=== PATIENT | female | born 1980 | race Caucasian/White ===

== ENCOUNTER 2023-08-08 09:50 | Emergency (ER) | payer OTHER, SELFPAY ==
[2023-08-08] VITALS (8 sets, daily range): BP systolic 130–159; BP diastolic 62–91; PULSE 60–81; RESP 16–18; TEMP 36.2–36.8; O2SAT 98–100
--- NOTE | ~2023-08-08 | CT_ITS ---
EXAMINATION: CT abdomen pelvis w con DATE: 08/08/2023 11:06 INDICATION: Right lower abdominal pain TECHNIQUE: Computed tomography (CT) of the abdomen and pelvis was performed with 100 cc Omnipaque 350 intravenous contrast. The dose-length product was 452.63 mGy-cm. Automated exposure control and iter ative reconstruction technique were employed. COMPARISON: None. FINDINGS: Lung bases unremarkable. Heart size normal. No significant pleural or pericardial effusion. No significant vascular abnormality. No lymphadenopathy. There is a complex right adnexal mass measu ring 4 cm. Small amount of free fluid in the pelvis. There is a 2 cm cyst of the left ovary. No evide nce for appendicitis. The liver, spleen, pancreas, adrenal glands and kidneys are unremarkable. Gallbladder is present. No hydronephrosis. No acute osseous abnormality. IMPRESSION: 1. Complex right adnexal mass measuring 4 cm, likely ovarian. Recommend correlation with ultrasound. Reviewed, dictated and finalized at location A. ANALYST IMPRESSION: 1. Complex right adnexal mass measuring 4 cm, likely ovarian. Recommend correla tion with ultrasound.
[2023-08-08 10:09] LABS: Appearance Urine Clear (Clear); Bilirubin Urine Negative (Negative); Blood Urine 2+ (Negative); Color Urine Yellow (Yellow); Glucose Urine UA Negative (Negative); Ketones Urine Negative (Negative); Leukocyte Esterase Ur Negative LEU/UL (Negative); Nitrate Urine Negative (Negative); Protein Urine Negative (Negative); Specific Grav Ur >= 1.030 (1.010-1.020); Urobilinogen Urine 0.2 mg/dL (0.2-1.0); pH Urine 5.5 (5.0-8.0)
[2023-08-08 10:13] LABS: Add Urine Microscopic? YES; Squamous Epithelial Cell Urine Few /hpf (Few); WBC Urine 0-3 /hpf (0-3)
[2023-08-08 10:14] LABS: Bacteria Urine 1+ /hpf
--- NOTE | 2023-08-08 10:21 | ED.ABDPAIN ---
HPI - Abdominal Pain General Chief Complaint: Abdominal Pain Stated Complaint: abdominal pain; vaginal bleeding Time Seen by Provider: 08/08/23 09:58 Source: patient Mode of arrival: ambulatory Limitations: no limitations History of Present Illness HPI narrative: Patient is a 43 year old female with a significant past medical history that presents today with right lower abdominal pain. Patient states that starting this morning she was having right lower quadrant abdominal pain that does radiate to the back. She states she also passed a small blood clot. It is her menstruation time. However she says she normally never has abdominal cramping during her menstruation. This might just be a coincidence. Most the pain is located in the right lower quadrant and very tenderness this area. MD elicited complaint: abdominal pain Pertinent past history: none Onset (ago): hour(s) Pain Consistency: constant Location: RLQ Severity: moderate Pain scale (0-10): 6 Quality: stabbing Radiation: RLQ Migration to: no migration Exacerbating factors: movement Relieving factors: nothing Associated symptoms: hematuria and other (vaginal blood clotting) Treatments prior to arrival: NSAIDs Related Data Home Medications Medication Instructions Recorded Confirmed No Home Medications 08/08/23 08/08/23 Allergies Allergy/AdvReac Type Severity Reaction Status Date / Time amoxicillin Allergy Unknown swelling Verified 08/08/23 10:01 of throat penicillin G Allergy Unknown swelling Verified 08/08/23 10:01 of throat Review of Systems Review of Systems: All systems reviewed & are unremarkable except as noted in HPI and below Constitutional: Constitutional: Reports as per HPI Eyes: Eyes: Reports no additional eye complaints ENT: Reports system reviewed and no additional complaints, except as documented Cardiovascular: Cardiovascular: Reports no additional cardiovascular complaints Respiratory: Respiratory: Reports no additional respiratory complaints Gastrointestinal: Gastrointestinal: Reports as per HPI and Reports abdominal pain Genitourinary: Genitourinary: Reports no additional female genitourinary complaints Musculoskeletal: Musculoskeletal: Reports no additional musculoskeletal complaints Integumentary/Breasts: Skin/Breast: Reports system reviewed and no additional complaints, except as docu Neurologic: Reports system reviewed and no additional complaints, except as documented Psychiatric: Psychiatric: Reports no additional psychiatric complaints Endocrine: Endocrine: Reports no additional endocrine complaints Hematologic/Lymphatic: Hematologic/Lymphatic: Reports no additional hematologic/lymphatic complaints Allergic/Immunologic: Allergic/Immunologic: Reports no additional allergic/immunologic complaints Exam Const: General: healthy appearing Nutritional Appearance: well nourished Orientation/consciousness: patient oriented x3 HENMT: Head: normal to inspection Ears: external ears normal Face/Nose/Sinus: Normal external nose present Face and sinus: normal facial exam Mouth: Yes Normal oral and palatal mucosa present Eyes: Conjunctivae: conjunctivae normal Pupils: Equal, round and reactive pupils present EOM: EOMs intact bilaterally Neck: Neck: normal visual inspection Chest: Chest palpation & inspection: normal inspection of the chest Resp: Effort & Inspection: normal respiratory effort Auscultation: clear to auscultation bilaterally Cardio: Rate: regular rate Rhythm: regular rhythm Heart sounds: Murmur heart sound present GI: GI Palp: Yes Tenderness to palpation present (GI), Yes Guarding due to palpation present (GI) (RLQ) and Yes Rebound tenderness present Auscultation: normal bowel sounds : General: Yes bladder normal to palpation Back/Spine/Pelvis: Back: no CVA tenderness Skin: General skin exam: normal color Neuro: General: patient oriented x3 Cranial nerves: Yes Nystagmus not presen
[2023-08-08] MEDS: SODIUM CHLORIDE 0.9% IV 1,000 ML 999 ML IV CONT (10:22)
[2023-08-08] MEDS: MORPHINE SULFATE (*CRX) 4 MG/ML INJ 2 MG IV PUSH (10:22)
[2023-08-08 10:23] LABS: Basophils Absolute Auto 0.03 K/mm3 (0.00-0.10); Basophils Percent Auto 0.4 % (0.0-1.0); Eosinophils Percent Auto 1.4 % (1.0-6.0); Hematocrit 37.7 % (35.0-49.0); Hemoglobin 12.6 g/dL (12.0-15.0); Immature Granulocyte Absolute 0.01 K/mm3 (0.00-0.00); Immature Granulocyte Percent A 0.1 % (0.0-0.0); Lymphocytes Absolute Auto 1.83 K/mm3 (1.10-4.50); Mean Corpuscular HGB Conc 33.4 g/dL (32.0-36.0); Mean Corpuscular Hemoglobin 28.8 pg (27.0-31.0); Mean Corpuscular Volume 86.1 fL (78.0-102.0); Mean Platelet Volume 9.3 fl (9.2-11.8); Monocytes Percent Auto 9.6 % (2.0-11.0); Neutrophils Absolute Auto 4.6 K/mm3 (1.7-7.2); Neutrophils Percent Auto 63.5 % (50.0-70.0); Platelet Count Result 294 K/mm3 (150-420); Red Blood Count 4.38 M/mm3 (4.20-5.40); Red Cell Distribution Width 13.3 % (11.6-14.4); White Blood Count 7.3 K/mm3 (4.8-10.8)
[2023-08-08 10:39] LABS: Pregnancy On Board Control Positive; Urine Pregnancy Test Negative
[2023-08-08 10:39] LABS: Alanine Aminotransferase 19 U/L (14-59); Albumin Level 3.4 g/dL (3.4-5.0); Alkaline Phosphatase 64 U/L (46-116); Anion Gap 9 mmol/L (8-16); Aspartate Amino Transferase 14 U/L (15-37); Bilirubin,Total 0.4 mg/dL (0.00-1.00); Blood Urea Nitrogen 13 mg/dL (7-18); Calcium 8.3 mg/dL (8.5-10.1); Carbon Dioxide 27 mmol/L (21-32); Chloride 106 mmol/L (98-108); Estimated CRCL calculation 83 ml/min; Estimated Glomerular Filt Rate > 60; Glucose 86 mg/dL (70-99); Lipase 37 U/L (16-77); Osmolality Calculated 293 mOsm/kg (285-295); Potassium 3.9 mmol/L (3.5-5.1); Sodium 142 mmol/L (136-145)
[2023-08-08 10:44] LABS: Lactic Acid Reflex 1.5 mmol/L (0.4-2.0)
== END 2023-08-08 11:42 | disposition home or self-care (01) ==
PROVIDERS: Emergency Provider Family Medicine
DX: N83.201 Unspecified ovarian cyst, right side (principal)
CPT/HCPCS: 36415; 74177; 80053; 81001; 81025; 83605; 83690; 85025; 96361; 96374; 99284; J2270; J7030; Q9967

== ENCOUNTER 2023-08-09 16:19 | Emergency (ER) | payer OTHER, SELFPAY ==
[2023-08-09 16:20] VITALS: BP 129/76; PULSE 93; RESP 16; TEMP 36.7; O2SAT 98
--- NOTE | 2023-08-09 17:58 | PC.NURSE ---
Pt walked out of ED and left in vehicle before being seen.
== END 2023-08-09 18:20 | disposition left against medical advice (07) ==
DX: R10.9 Unspecified abdominal pain (principal)
CPT/HCPCS: 99199

== ENCOUNTER 2023-12-18 16:49 | Outpatient (CLI) | payer OTHER, SELFPAY ==
--- NOTE | ~2023-12-18 | XR_ITS ---
EXAMINATION: XR forearm RT 2V DATE: 12/18/2023 17:16 INDICATION: Right elbow pain. TECHNIQUE: 2 views of right forearm were obtained. COMPARISON: None. FINDINGS: Bone alignment is normal. No fracture. There is fusion of capitate, lunate, triquetrum, and hamate. Scaphoid is absent. The elbow joint space is normal. No elbow joint effusion. IMPRESSION: 1. No fracture. Reviewed, dictated and finalized at location A. IMPRESSION: 1. No fracture.
== END 2023-12-18 16:50 | disposition home or self-care (01) ==
LOC: CHSIMG 16:59
PROVIDERS: PCP Physician Assistant; Visit Provider Physician Assistant
DX: M79.631 Pain in right forearm (principal)
CPT/HCPCS: 73090

== ENCOUNTER 2023-12-22 17:49 | Outpatient (CLI) | payer OTHER, SELFPAY ==
--- NOTE | ~2023-12-22 | XR_ITS ---
EXAMINATION: XR chest 2V DATE: 12/22/2023 18:35 INDICATION: Acute bronchitis. TECHNIQUE: Frontal and lateral views of the chest were obtained. COMPARISON: Chest 2 views 06/18/2013, CT abdomen and pelvis 08/08/2023 FINDINGS: There is no pneumonia, pleural effusion, or pneumothorax. The heart size is normal. IMPRESSION: 1. No acute cardiopulmonary disease. Reviewed, dictated and finalized at location E.
== END 2023-12-22 17:50 | disposition home or self-care (01) ==
PROVIDERS: PCP Physician Assistant; Visit Provider Physician Assistant
DX: R06.2 Wheezing (principal)
CPT/HCPCS: 71046

== ENCOUNTER 2025-03-06 14:40 | Emergency (ER) | payer OTHER, SELFPAY ==
--- OUTSIDE RECORDS SUMMARY | 2019-08-31 03:33 | XMS_ITS | Continuity of Care Document ---
Author Organization [facility] [facility] Address [address] [place] [address] [place] [address] Phone Care Team Providers Care Tap Dancer Name Role Phone Provider, [facility] Unavailable Unavailable Advance Directives Directive Yes / No Effective Date File Name No Information Encounters Encounter Description Practice Location Reason(s) For Visit Diagnoses Date Provider Providers Copied on Encounter [facility], [address] [place], [place], [id number] tel:[phone] [facility] No Information Provider [facility]. [address] [place], [place], [id number]. tel:[phone] Family History Family Member Type Diagnosis Age At Onset No Information Payers Payer name Insurance type Covered libertarian ID Authoriza tion(s) No Information Social History Type Description Quantity Date Captured Comments Sex Female Smoking Status No Information History Of Present Illness Encounter Date Complaint History Of Prese nt Illness No Information Functional Status Date Functional Assessmen t No Information Instructions Date Instruction Additional Infor mation No Information Assessments Type Assessment Date No Information Patient Care Teams Name Effective Dates (start - stop) Status Members No Information
[2025-03-06 14:42] VITALS: BP 152/98; PULSE 102; RESP 16; TEMP 36.6; O2SAT 97
--- NOTE | 2025-03-06 14:52 | ED.EYEPROB ---
HPI - Eye Problem General Chief complaint: Eye Problems Stated complaint: face swelling Time Seen by Provider: 03/06/25 14:49 Source: patient Mode of arrival: ambulatory Limitations: no limitations History of Present Illness HPI Narrative: 45-year-old with a history of psoriasis here with a right sided facial pain and swelling for past 2 days. She denies any trauma no history of fever or chills. She states that her doctor is on vacation. chief complaint: eye pain Onset (ago): day(s) (3) Onset description: gradual Duration: constant Location: right eye Eye Symptoms: pain Place: home Mechanism: none Severity: mild Related Data Home Medications ?Medication ?Instructions ?Recorded ?Confirmed ?Last Taken ?Type albuterol sulfate 90 mcg/actuation 2 inh inhalation Q6H PRN 01/25/25 01/25/25 Unknown History breath activated powder inhaler cyclobenzaprine 10 mg tablet 10 mg PO QID 01/25/25 01/25/25 Unknown History fluticasone propionate 100 1 inh inhalation Q12H 01/25/25 01/25/25 Unknown History mcg/actuation blister powder for inhalation gabapentin 300 mg capsule 300 mg PO TID 01/25/25 01/25/25 Unknown History Allergies Allergy/AdvReac Type Severity Reaction Status Date / Time amoxicillin Allergy Unknown swelling Verified 03/06/25 14:44 of throat penicillin G Allergy Unknown swelling Verified 03/06/25 14:44 of throat Review of Systems Review of Systems: All systems reviewed & are unremarkable except as noted in HPI and below Constitutional: Constitutional: Reports no additional constitutional complaints Eyes: Eyes: Reports no additional eye complaints ENT: Reports system reviewed and no additional complaints, except as documented Cardiovascular: Cardiovascular: Reports no additional cardiovascular complaints Respiratory: Respiratory: Reports no additional respiratory complaints Genitourinary: Genitourinary: Reports no additional female genitourinary complaints [facility] Past Medical History Medical History Asthma Allergies Family History Family History Mother Cancer Heart disease Sibling Cancer Grandparent Cancer Heart disease Social History Social History Smoking packs per day: 0.75 Smoking cigarettes per day: 15.0 Years smoked: 22 Smoking pack-years: 16.50 Smoking status: Current every day smoker Tobacco type: cigarettes Smoking end date: 06/13/25 Alcohol intake: never Substance use: never Do You Feel Safe in your Home?: Yes Lack of Transportation: No Lack of Food: Never True Current Housing: I Have Housing Concerned About Future Housing: No Difficulty Paying Gas/Electric Bills: No Difficulty Paying for Meds: No Currently Unemployed: No Education: Associate Degree Difficulty w/ Childcare or Family Care: No Exam Narrative: GENERAL: Well-appearing, well-nourished, and in no acute distress. HEAD: Normocephalic, atraumatic. EYES: PERRLA and EOMI. Right lower eyelid is swollen has a small stye ENT: Nares clear, no rhinorrhea or epistaxis. Mucous membranes moist. NECK: Supple. CHEST: Clear to auscultation. No respiratory distress. HEART: Regular rate and rhythm. No murmur heard. Normal peripheral pulses. EXTREMITIES: Normal range of motion. No edema. SKIN: Warm, dry, no rash. NEURO: No focal deficits. Alert and oriented x3. PSYCH: Normal mood and affect. Course Course Emergency Course: advised patient warm compresses antibiotic eye ointment Vital Signs Vital signs: Vital Signs Temperature 36.6 C 03/06/25 14:42 Pulse Rate 102 H 03/06/25 14:42 Respiratory Rate 16 03/06/25 14:42 Blood Pressure 152/98 H 03/06/25 14:42 Pulse Oximetry 97 03/06/25 14:42 Oxygen Delivery Room Air 03/06/25 14:42 Temperature 36.6 C 03/06/25 14:42 Pulse Rate 102 H 03/06/25 14:42 Respiratory Rate 16 03/06/25 14:42 Blood Pressure 152/98 H 03/06/25 14:42 Pulse Oximetry 97 03/06/25 14:42 Oxygen Delivery Room Air 03/06/25 14:42 Discharge Plan Discharge Clinical Impression: External hordeolum Qualifiers: Laterality: right Eyelid: lower Qualified Code(s): H00.012 - Hordeolum externum right lower eyelid Patient Disposition: Home Condition: Stable Instructions: Umberto (ED) Patient Language: Polish Prescriptions: New erythromycin 5 mg/gram (0.5 %) ointment 1 applic RIGHT EYE Q8H Qty: 3.5 0RF No Action gabapentin 300 mg capsule 300 mg PO TID cyclobenzaprine 10 mg tablet 10 mg PO QID albuterol sulfate 90 mcg/actuation aerosol powdr breath activated 2 inh inhalation Q6H PRN fluticasone propionate 100 mcg/actuation blister with device 1 inh inhalation Q12H methylprednisolone [Medrol (Tru)] 4 mg tablets,dose pack See Rx Instructions PO PER PKG DIR Qty: 21 0RF Rx Instructions: PO PER PKG DIR Follow-up/Referrals: Nellie,LIGIA Light [Primary Care Provider] Time of Disposition: 15:04
--- OUTSIDE RECORDS SUMMARY | 2025-03-06 14:56 | XMS_ITS | Encounter Summary ---
Author Organization [facility] Address [address] [place] [address] Care Team Providers Care Picking Table Worker Name Role Phone Phani Ballard Primary Care Provider [phone] Encounter Details Date Type Department Care Team (Late st Contact Info) Description 11/20/2018 Abstract [facility] CONVERSION [address] [place] [address] , Generic Conversion, Social History Tobacco Use Types Packs/Day Years Used Date Smoking Tobacco: Never Assessed Comments Unknown Sex and Gender Information Value Date Recorded Sex Assigned at Not on file Legal Sex Female 9:05 PM LIABILITY CLAIMS MANAGER Gender Identity Not on file Sexual Orientation Not on file documented as of this encounter Plan of Treatment Not on file documented as of this encounter Visit Diagnoses Not on filedocumented in this encounter Additional Health Concerns Infection Onset Date Last Indicated Resolved Time MRSA 07/01/2018 07/01/2018 documented as of this encounter Care Teams Picking Table Worker Relationship Specialty Start Date End Date Phani Ballard PA PCP - General PHYSICIAN LOGGING EQUIPMENT MECHANIC 04/18/24 documented as of this encounter
--- OUTSIDE RECORDS SUMMARY | 2025-03-06 14:56 | XMS_ITS | Encounter Summary ---
Author Organization [facility] Address [address] [place] [address] Care Team Providers Care Vocal Artist Name Role Phone Phani Ballard Primary Care Provider [phone] Encounter Details Date Type Department Care Team (Late st Contact Info) Description 08/29/2017 Abstract [facility] CONVERSION [address] [place] [address] , Generic Conversion, Social History Tobacco Use Types Packs/Day Years Used Date Smoking Tobacco: Never Assessed Comments Unknown Sex and Gender Information Value Date Recorded Sex Assigned at Not on file Legal Sex Female 9:05 PM PARAEDUCATOR Gender Identity Not on file Sexual Orientation Not on file documented as of this encounter Plan of Treatment Not on file documented as of this encounter Visit Diagnoses Not on filedocumented in this encounter Additional Health Concerns Infection Onset Date Last Indicated Resolved Time MRSA 07/01/2018 07/01/2018 documented as of this encounter Care Teams Vocal Artist Relationship Specialty Start Date End Date Pahni Ballard PA PCP - General PHYSICIAN YARD LOADER OPERATOR 04/18/24 documented as of this encounter
--- OUTSIDE RECORDS SUMMARY | 2025-03-06 15:16 | XMS_ITS | Clinical Summary ---
Author Organization [facility] Address [address] [place] [address] Care Team Providers Care Conditioning Coach Name Role Phone Shirley Hicks MD Unavailable Phani Ballard Primary Care Provider [phone] Allergies Active Allergy Reactions Criticality Noted Date Comments Penicillins Swollen tongue High 08/09/2023 Medications acetaminophen-a spirin-caffeine (EXCEDRIN MIGRAINE) 250-250-65 mg per tablet Take 1 tablet by mouth every 6 (six) hours as needed for headaches Active albuterol HFA (PROVENTIL HFA,VENTOLIN HFA,PROAIR HFA) 90 mcg/actuation inhaler Inhale 2 puffs every 4 (four) hours as needed for shortness of breath Active diazePAM (VALIUM) 5 mg tablet Take 1 tablet (5 mg total) by mouth 2 (two) times a day 10 tablet 5 Active ibuprofen (ADVIL,MOTRIN) 600 mg tablet Take 1 tablet (600 mg total) by mouth every 6 (six) hours as needed for pain for up to 20 doses 20 tablet 5 Active HYDROcodone-mason taminophen (NORCO) 5-325 mg per tabletIndicatio ns:Pain Take 1 tablet by mouth every 6 (six) hours as needed for pain for up to 10 doses 10 tablet 5 Active Active Problems No known active problems Resolved Problems Problem Noted Date Diagnosed Date Resolved Date Ovarian torsion 08/10/2023 08/27/2023 Surgical History Surgery Date Site/Laterality Comments BONE GRAFT Right LAPAROSCOPIC OOPHORECTOMY 06/15/2023 - 06/14/2024 Right acute RLQ pain, endometrioma Medical History Medical History Date Comments Abnormal Pap smear of cervix Asthma Psoriasis Migraines Family History Medical History Relation Name Comments Multiple sclerosis Brother Breast cancer Maternal Grandmother Relation Name Status Comments Brother Maternal Grandmother Social History Tobacco Use Types Packs/Day Years Used Date Smoking Tobacco: Every Day Cigarettes 0.7 25.7 Started: 1999 Smokeless Tobacco: Never Tobacco Cessation:Ready to Q uit: Not Asked; Counseling Given: Not Answered AUDIT-C Answer Date Recorded Q1: How often do you have a drink containing alcohol? Never 08/10/2023 Q2: How many drinks containi ng alcohol do you have on a typical day when you are drinking? Patient does not drink Q3: How often do you have si x or more drinks on one occasion? Never 08/10/2023 Personal Safety Answer Date Recorded Have you ever been in or are you currently in a harmful physical or emotional relationship or is someone making you feel afraid or unsafe? 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 - [employer] Not on file Not on file Not on file Obstetrics History Para Term AB IAB SAB Ectopic Multiple Livin g Live Births 2 2 2 2 Date Outcome GA Total Labor Labor/2nd/3rd Weight Sex Type Anes PTL Marycarmen A1 A5 Name Clin Term Vaginal Term Vaginal Last Filed Vital Signs Vital Sign Reading Time Taken Comments Blood Pressure 137/86 11/11/2024 9:08 PM CDT Pulse 93 11/11/2024 9:08 PM CDT Temperature 36.9 C (98.4 F) 11/11/2024 9:08 PM CDT Respiratory Rate 18 11/11/2024 9:08 PM CDT Oxygen Saturation 99% 11/11/2024 9:08 PM CDT Inhaled Oxygen Concentration - - Weight 79.4 kg (175 lb) 11/11/2024 9:08 PM CDT Height 170.2 cm (5' 7) 11/11/2024 9:08 PM CDT Body Mass Index 27.41 11/11/2024 9:08 PM CDT Plan of Treatment Health Maintenance Due Date Last Done Comments Breast Cancer Screening-Mammogram 1979 Cervical Cancer Screening 1979 Colon Cancer Screening-Colonoscopy 1979 Depression Screening 1979 Hepatitis C Screening 1979 DTaP/Tdap/Td Vaccine (6 - Tdap) 02/14/1993 02/13/1993, 02/12/1984, 08/02/1981, Additional history exists Hepatitis B Screening 1997 Regular Well Visit/Exam 18-64 1997 Pneumococcal vaccine <65 (1 of 2 - PCV) 1998 HPV Vaccines (1 - 3-dose SCD M series) 2006 Influenza Vaccine (#1) 2025 Insurance [facility] Advance Directives For more information, please contact: [phone] * Full Code (Latest Code Status on File) Date Activated Date Inactivated Comments 08/10/2023 5:32 AM 08/10/2023 3:45 PM Care Teams Conditioning Coach Relationship Specialty Start Date End Date Phani Ballard PA [address] [place] [address] PCP - General Family Practice 11/11/24 Shirley Hicks MD [address] [place] [address] Drawbridge Operator Obstetrics and Gynecology 08/10/23
--- OUTSIDE RECORDS SUMMARY | 2025-03-06 15:16 | XMS_ITS | Clinical Summary ---
Author Organization [facility] Address [facility] [place] [address] Care Team Providers Care Professional Development Director Name Role Phone Phani Ballard Primary Care Provider [phone] Allergies Active Allergy Reactions Criticality Noted Date Comments Amoxicillin Anaphylaxis High 05/16/2024 Etanercept Swelling 05/16/2024 Penicillins Unknown 05/16/2024 Medications HYDROcodone-acet aminophen (NORCO) 5-325 MG tablet 08/10/2023 Active NARCAN 4 MG/0.1ML nasal spray 08/10/2023 Active WIXELA INHUB 100-50 MCG/ACT inhaler 1 puff 2 (two) times daily. 12/21/2023 Active meloxicam (MOBIC) 15 MG tabletIndication s:Lateral epicondylitis, right elbow Take 1 tablet (15 mg total) by mouth daily. 30 tablet 2 05/16/2024 Active Active Problems Problem Noted Date Diagnosed Date Lateral epicondylitis, right elbow 05/16/2024 Assessment & Plan (05/16/2024 6:06 PM ACCOUNT SOLUTIONS ANALYST): Recommendation at this time, we went over the risks and benefits as well as the alternatives. All questions are answered. The right elbow was injected, tolerated well. We'll get her set up for meloxicam 15 mg once daily. Give her physician-directed exercises. We'll have her follow up in six weeks. If there's no significant improvement, maintain to eventually work her up for the carpal tunnel. Also a contributing cause of her right arm pain. 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[facility]) Social History Tobacco Use Types Packs/Day Years Used Date Smoking Tobacco: Every Day Cigarettes Tobacco Cessation:Ready to Q uit: No; Counseling Given: Yes Alcohol Use Standard Drinks/Week Comments Never 0 (1 standard drink = 0.6 oz pur e alcohol) PHQ-2 Answer Date Recorded Patient Health Questionnaire-2 Score 0 05/16/2024 Comments Unknown Sex and Gender Information Value Date Recorded Sex Assigned at Not on file Legal Sex Female 9:05 PM ACCOUNT SOLUTIONS ANALYST Gender Identity Not on file Sexual Orientation Not on file Last Filed Vital Signs Vital Sign Reading Time Taken Comments Blood Pressure 131/76 05/16/2024 1:46 PM ACCOUNT SOLUTIONS ANALYST Pulse 93 05/16/2024 1:46 PM ACCOUNT SOLUTIONS ANALYST Temperature 36.8 C (98.2 F) 05/16/2024 1:46 PM ACCOUNT SOLUTIONS ANALYST Respiratory Rate - - Oxygen Saturation 98% 05/16/2024 1:46 PM ACCOUNT SOLUTIONS ANALYST Inhaled Oxygen Concentration - - Weight 79.4 kg (175 lb) 05/16/2024 1:46 PM ACCOUNT SOLUTIONS ANALYST Height 170.2 cm (5' 7) 05/16/2024 1:46 PM ACCOUNT SOLUTIONS ANALYST Body Mass Index 27.41 05/16/2024 1:46 PM ACCOUNT SOLUTIONS ANALYST Plan of Treatment Health Maintenance Due Date Last Done Comments Cervical Cancer Screening Pap Smear (Age 30 to 64) Every 3 Years 1979 Colorectal Cancer Screening Colonoscopy (10 Years) 1979 Annual Physical 1982 DTaP, Tdap and Td Vaccines (6 - Tdap) 02/14/1993 02/13/1993, 02/12/1984, 08/02/1981, Additional history exists Hepatitis C 1997 Hepatitis B Vaccines (1 of 3 - 19+ 3-dose series) 1998 Pneumococcal Vaccine: Pediatrics (0 to 5 Years) and At-Risk Patients (6 to 49 Years) (1 of 2 - PCV) 1998 HPV Vaccines (1 - 3-dose SCDM series) 2006 Cervical Cancer Screening Pap with HPV Testing (Age 30 to 64) Every 5 Years 2009 Cervical Cancer Screening with HPV 2009 Mammogram Screening 2019 PHQ-2 (Physician Marrero) 06/15/2024 05/16/2024 COVID-19 Vaccine ( season) 2025 Meningococcal B Vaccine Aged Out No l onger eligible based on patient's age to complete this topic Meningococcal Vaccine Aged Out No re martha eligible based on patient's age to complete this topic RSV Immunizations Under 20 Months Aged Out No longer eligible based on patient's age to complete this topic Additional Health Concerns Infection Onset Date Last Indicated MRSA 07/01/2018 07/01/2018 Insurance [address] [place] [address] [employer] Care Teams Professional Development Director Relationship Specialty Start Date End Date Phani Ballard PA PCP - General PHYSICIAN AGRICULTURAL RESEARCH TECHNOLOGIST 04/18/24
[2025-03-06 15:19] VITALS: BP 152/98; PULSE 102; RESP 16; TEMP 36.6; O2SAT 97
== END 2025-03-06 15:19 | disposition home or self-care (01) ==
LOC: CHSED 15:03
PROVIDERS: Emergency Provider Family Medicine; PCP Physician Assistant
DX: H00.012 Hordeolum externum right lower eyelid (principal); F17.210 Nicotine dependence, cigarettes, uncomplicated
CPT/HCPCS: 99283